=== PATIENT | male | born 1970 | race Caucasian/White ===

== ENCOUNTER 2023-01-20 11:22 | Emergency (ER) | payer BC, SELFPAY ==
[2023-01-20] VITALS (71 sets, daily range): BP systolic 101–174; BP diastolic 70–115; PULSE 47–81; RESP 20–22; TEMP 36.4–37.1; O2SAT 94–99; BMI 31.0
--- NOTE | 2023-01-20 11:50 | CRLHL7_ITS ---
For Patients: As a result of the Cures Act, medical imaging exams and procedure reports are released immediately into your electronic medical record. You may view this report before your referring provider. If you have questions, please contact your health care provider. INDICATION: Chest pain. Shortness of breath. TECHNIQUE: Chest 2 views. COMPARISON: None. FINDINGS: Cardiovascular and mediastinum: Heart size and vasculature are normal in caliber and appearance. Lungs and pleural spaces: Lungs are clear. No sign of infiltrate or mass. No sign of pleural effusion. No pneumothorax. Bones and soft tissues: No significant findings. IMPRESSION: No acute or significant findings. Dictated by Dimitri Kiran MD @ 01/20/2023 12:51:34 PM (Electronically Signed)
--- NOTE | 2023-01-20 11:51 | ED.GENADULT ---
HPI - General Adult General Time Seen by Provider: 11:51 Date Seen: 01/20/23 Chief complaint: Chest Pain Stated complaint: chest pains Time Seen by Provider: 01/20/23 11:32 History of Present Illness HPI narrative: This is a 52-year-old male who is generally healthy save for history of viral mental allergies, presenting to the ER today with chest pain. He has been healthy and normal lately. No recent episodes of chest pain or shortness of breath. He was traveling this weekend to stay with a [address] a family . Other than being out of his usual routine, no other unusual behavior this weekend. He did have a couple of alcoholic beverages 2 nights ago, on Friday. He got back home yesterday went for an hour and a half walk that felt fine. This morning he was getting back into his routine and doing a workout, as he normally does. While working out he began to experiencing a substernal chest pressure. He was quite intense in bothersome. He had to stop working out. He made him a little bit sweaty. It did radiate with some numbness down his left arm. No pain to the back, up to the jaw, or down to his abdomen. No palpitations. No syncope. Perhaps mild shortness of breath. The pain was not pleuritic. No abdominal pain. No history of similar pains. No swelling in his legs. No history of DVT/PE. He does note that the summer has been as bad summer for his environmental allergies so he has been taking Zyrtec, which he does not normally take. He took an Ambien last night to make sure that he got a good night's sleep, and slept well. No drugs. No tobacco. Related Data Home Medications Medication Instructions Recorded Confirmed cetirizine 10 mg capsule (All Day 10 mg PO DAILY PRN 01/20/23 01/20/23 Allergy (cetirizine)) zolpidem 5 mg tablet (Ambien) 5 mg PO QHS 01/20/23 01/20/23 Previous Rx's Medication Instructions Recorded doxepin 25 mg capsule 25 - 50 mg (1 - 2 x 25 mg) PO QHS 04/22/22 PRN sleep difficulties #60 caps Allergies Allergy/AdvReac Type Severity Reaction Status Date / Time No Known Drug Allergies Allergy Verified 01/20/23 11:33 [facility] Medical History (Updated 01/20/23 @ 16:22 by Star Pepper MD) Chronic sinusitis ?J32.9 - Chronic sinusitis, unspecified (ICD-10) Surgical History (Updated 04/16/22 @ 12:46 by Marguerite Escobedo) Status post wrist surgery ?Z98.890 - Other specified postprocedural states (ICD-10) Hx of removal of cyst ?Z98.890 - Other specified postprocedural states (ICD-10) Hx of nasal septoplasty ?Z98.890 - Other specified postprocedural states (ICD-10) Family History (Updated 04/16/22 @ 12:48 by Marguerite Escobedo) Father High blood pressure Diabetes Stroke Paternal Grandmother Diabetes Maternal Grandmother Diabetes Social History (Updated 04/16/22 @ 12:49 by Marguerite Escobedo) Narrative: Does not use Illicit drugs Non Smoker Approximately 6 drinks of Alcohol a week 2 Children Smoking Status: Never smoker Do you use any of these nicotine containing products: None How often do you have a drink containing alcohol: 2-3 times a week How many standard drinks containing alcohol do you have on a typical day: 1 or 2 How often do you have six or more drinks on one occasion: Never AUDIT-C Alcohol total score: 3 Non-prescribed substance use: denies use service: No Exam Narrative: Exam Narrative: Constitutional: Appears well-developed and well-nourished. Alert. Conversant. Non toxic. HENT: Head: Atraumatic. Nose: Nose normal. Mouth/Throat: Oral mucosa is clear and moist. no trismus. Pharynx normal. Tonsils symmetric. No tonsillar enlargement, erythema, or exudate. Eyes: Conjunctivae normal. EOM normal. Pupils equal, round, and reactive to light. No scleral icterus. Neck: Normal range of motion. Neck supple. No tracheal deviation present. No JVD Cardiovascular: Normal rate, regular rhythm. No gallop. No friction rub. No murmur heard. Symmetric radial and posterior tibial artery pulses Pulmonary/Chest: Effort normal. No stridor. No respiratory distress. No wheezes. No rales. No rhonchi . No tenderness. Abdominal: Soft. Bowel sounds normal. No distension. No mass. No tenderness. No rebound. No guarding. Musculoskeletal: RUE: Normal range of motion. No tenderness. No deformity LUE: Normal range of motion. No tenderness. No deformity RLE: Normal range of motion. No edema. No tenderness. No deformity LLE: Normal range of motion. No edema. No tenderness. No deformity Lymph: No cervical adenopathy. Neurological: Alert and oriented to person, place, and time. Normal strength. CN II-VII intact. No sensory deficit. GCS eye subscore is 4. GCS verbal subscore is 5. GCS motor subscore is 6. Normal coordination Skin: Skin is warm and dry. No rash noted. No pallor. Normal capillary refill. Psychiatric: Normal mood. Normal affect. Mildly anxious and appears uncomfortable. Const: Vital Signs, click to edit/add: Vital Signs - 24 hr 01/20/23 11:27 01/20/23 11:47 01/20/23 12:00 Temperature 97.6 F Pulse Rate 61 72 Pulse Rate [Right Pulse Oximeter] 77 Respiratory Rate Blood Pressure 135/100 H Blood Pressure [Ri ght Upper Arm] 174/115 H Pulse Oximetry 95 96 94 Oxygen Delivery Me thod Room Air Room Air Room Air 01/20/23 12:01 01/20/23 12:02 01/20/23 12:12 Temperature Pulse Rate 76 Pulse Rate [Right Pulse Oximeter] Respiratory Rate Blood Pressure 135/96 H 125/94 H Blood Pressure [Ri ght Upper Arm] Pulse Oximetry 95 Oxygen Delivery Mn thod Room Air 01/20/23 12:16 01/20/23 12:22 01/20/23 12:27 Temperature Pulse Rate 81 Pulse Rate [Right Pulse Oximeter] Respiratory Rate Blood Pressure 134/94 H 138/101 H 145/101 H Blood Pressure [Ri ght Upper Arm] Pulse Oximetry 99 Oxygen Delivery Me thod Room Air 01/20/23 12:28 01/20/23 12:30 01/20/23 12:32 Temperature Pulse Rate 79 76 73 Pulse Rate [Right Pulse Oximeter] Respiratory Rate Blood Pressure 137/86 Blood Pressure [Ri ght Upper Arm] Pulse Oximetry 98 97 97 Oxygen Delivery Me thod Room Air Room Air Room Air 01/20/23 12:36 01/20/23 12:41 01/20/23 12:45 Temperature Pulse Rate 68 55 L 53 L Pulse Rate [Right Pulse Oximeter] Respiratory Rate Blood Pressure 133/95 H 129/89 126/98 H Blood Pressure [Ri ght Upper Arm] Pulse Oximetry 95 95 96 Oxygen Delivery Me thod Room Air Room Air Room Air 01/20/23 12:46 01/20/23 12:47 01/20/23 12:48 Temperature Pulse Rate 61 59 L 48 L Pulse Rate [Right Pulse Oximeter] Respiratory Rate Blood Pressure 128/83 Blood Pressure [Ri ght Upper Arm] Pulse Oximetry 94 95 96 Oxygen Delivery Me thod Room Air Room Air Room Air 01/20/23 12:52 01/20/23 12:52 01/20/23 12:57 Temperature Pulse Rate 52 L 50 L Pulse Rate [Right Pulse Oximeter] 50 L Respiratory Rate 22 Blood Pressure 116/75 110/71 Blood Pressure [Ri ght Upper Arm] 116/75 Pulse Oximetry 97 95 96 Oxygen Delivery Me thod Room Air Room Air Room Air 01/20/23 13:00 01/20/23 13:02 01/20/23 13:07 Temperature Pulse Rate 54 L 72 60 Pulse Rate [Right Pulse Oximeter] Respiratory Rate Blood Pressure 114/83 101/70 Blood Pressure [Ri ght Upper Arm] Pulse Oximetry 95 94 95 Oxygen Delivery Me thod Room Air Room Air Room Air 01/20/23 13:12 01/20/23 13:15 01/20/23 13:16 Temperature Pulse Rate 52 L 63 55 L Pulse Rate [Right Pulse Oximeter] Respiratory Rate Blood Pressure 116/88 123/85 Blood Pressure [Ri ght Upper Arm] Pulse Oximetry 97 95 94 Oxygen Delivery Me thod Room Air Room Air Room Air 01/20/23 13:21 01/20/23 13:27 01/20/23 13:28 Temperature Pulse Rate 47 L 51 L 59 L Pulse Rate [Right Pulse Oximeter] Respiratory Rate Blood Pressure 125/80 112/91 H Blood Pressure [Ri ght Upper Arm] Pulse Oximetry 97 95 97 Oxygen Delivery Me thod Room Air Room Air Room Air 01/20/23 13:30 01/20/23 13:32 01/20/23 13:41 Temperature Pulse Rate 53 L 53 L 69 Pulse Rate [Right Pulse Oximeter] Respiratory Rate Blood Pressure 116/77 125/85 Blood Pressure [Ri ght Upper Arm] Pulse Oximetry 96 95 94 Oxygen Delivery Me thod Room Air Room Air Room Air 01/20/23 13:45 01/20/23 14:00 01/20/23 14:02 Temperature Pulse Rate 80 60 59 L Pulse Rate [Right Pulse Oximeter] Respiratory Rate Blood Pressure 121/86 Blood Pressure [Ri ght Upper Arm] Pulse Oximetry 95 97 95 Oxygen Delivery Me od Room Air Room Air Room Air 01/20/23 14:15 01/20/23 14:22 01/20/23 14:30 Temperature Pulse Rate 57 L 81 Pulse Rate [Right Pulse Oximeter] Respiratory Rate Blood Pressure 126/88 Blood Pressure [Ri ght Upper Arm] Pulse Oximetry 96 95 Oxygen Delivery Me od Room Air Room Air 01/20/23 14:41 01/20/23 14:46 01/20/23 15:00 Temperature Pulse Rate 74 71 75 Pulse Rate [Right Pulse Oximeter] Respiratory Rate Blood Pressure 120/80 Blood Pressure [Ri ght Upper Arm] Pulse Oximetry 96 99 96 Oxygen Delivery Me od Room Air Room Air Room Air 01/20/23 15:02 01/20/23 15:15 01/20/23 15:22 Temperature Pulse Rate 71 63 79 Pulse Rate [Right Pulse Oximeter] Respiratory Rate Blood Pressure 129/93 H 142/97 H Blood Pressure [Ri ght Upper Arm] Pulse Oximetry 95 97 96 Oxygen Delivery Me od Room Air Room Air Room Air 01/20/23 15:30 01/20/23 15:41 01/20/23 15:45 Temperature Pulse Rate 77 79 77 Pulse Rate [Right Pulse Oximeter] Respiratory Rate Blood Pressure 138/92 H Blood Pressure [Ri ght Upper Arm] Pulse Oximetry 96 98 96 Oxygen Delivery Me od Room Air Room Air Room Air 01/20/23 16:01 01/20/23 16:02 01/20/23 16:15 Temperature Pulse Rate 67 64 77 Pulse Rate [Right Pulse Oximeter] Respiratory Rate Blood Pressure 139/92 H Blood Pressure [Ri ght Upper Arm] Pulse Oximetry 97 98 98 Oxygen Delivery Me od Room Air Room Air Room Air 01/20/23 16:22 01/20/23 16:30 01/20/23 16:42 Temperature Pulse Rate 77 65 76 Pulse Rate [Right Pulse Oximeter] Respiratory Rate Blood Pressure 162/102 H 151/100 H Blood Pressure [Ri ght Upper Arm] Pulse Oximetry 98 97 98 Oxygen Delivery Me thod Room Air Room Air Room Air 01/20/23 16:45 01/20/23 17:00 01/20/23 17:02 Temperature Pulse Rate 72 74 76 Pulse Rate [Right Pulse Oximeter] Respiratory Rate Blood Pressure 159/105 H Blood Pressure [Ri ght Upper Arm] Pulse Oximetry 97 95 97 Oxygen Delivery Me thod Room Air Room Air Room Air 01/20/23 17:04 01/20/23 17:15 01/20/23 17:21 Temperature Pulse Rate 68 75 70 Pulse Rate [Right Pulse Oximeter] Respiratory Rate Blood Pressure 149/104 H Blood Pressure [Ri ght Upper Arm] Pulse Oximetry 94 97 96 Oxygen Delivery Me thod Room Air Room Air Room Air 01/20/23 17:30 01/20/23 17:42 01/20/23 17:45 Temperature Pulse Rate 61 66 64 Pulse Rate [Right Pulse Oximeter] Respiratory Rate Blood Pressure 145/100 H Blood Pressure [Ri ght Upper Arm] Pulse Oximetry 95 96 96 Oxygen Delivery Me thod Room Air Room Air Room Air 01/20/23 18:04 01/20/23 18:05 01/20/23 18:07 Temperature Pulse Rate 65 Pulse Rate [Right Pulse Oximeter] Respiratory Rate 20 Blood Pressure 139/99 H Blood Pressure [Ri ght Upper Arm] Pulse Oximetry 97 Oxygen Delivery Me thod Room Air Room Air 01/20/23 18:15 01/20/23 18:30 01/20/23 18:31 Temperature Pulse Rate 66 66 70 Pulse Rate [Right Pulse Oximeter] Respiratory Rate Blood Pressure 140/104 H Blood Pressure [Ri ght Upper Arm] Pulse Oximetry 95 97 95 Oxygen Delivery Me thod Room Air Room Air 01/20/23 18:45 01/20/23 18:53 01/20/23 18:56 Temperature 98.7 F Pulse Rate 64 Pulse Rate [Right Pulse Oximeter] 79 Respiratory Rate 20 Blood Pressure 132/98 H Blood Pressure [Ri ght Upper Arm] 132/98 H Pulse Oximetry 94 96 Oxygen Delivery Me thod Room Air Room Air Course Vital Signs Vital signs: Initial Vital Signs Temperature 97.6 F 01/20/23 11:27 Temperature Source Temporal Artery Scan 01/20/23 11:27 Pulse Rate 77 01/20/23 11:27 Pulse Rhythm Regular 01/20/23 11:27 Pulse Strength 3+ Normal 01/20/23 11:27 Blood Pressure 174/115 H 01/20/23 11:27 Blood Pressure Mean 134 H 01/20/23 11:27 Pulse Oximetry 95 01/20/23 11:27 Oxygen Delivery Method Room Air 01/20/23 11:27 Vital Signs Temperature 97.6 F 01/20/23 11:27 Pulse Rate 77 01/20/23 11:27 Blood Pressure 174/115 H 01/20/23 11:27 Pulse Oximetry 95 01/20/23 11:27 Oxygen Delivery Method Room Air 01/20/23 11:27 Temperature 98.7 F 01/20/23 18:56 Pulse Rate 79 01/20/23 18:56 Respiratory Rate 20 01/20/23 18:56 Blood Pressure 132/98 H 01/20/23 18:56 Pulse Oximetry 96 01/20/23 18:56 Oxygen Delivery Method Room Air 01/20/23 18:56 Medical Decision Making MDM Narrative Medical decision making narrative: This patient presents to the ER today for evaluation of chest pain. Differential was broad. No evidence of palpitations, syncope or other cardiac dysrhythmia. We considered possible ACS, however workup with initial EKG s and troponin is negative. Given time since onset of symptoms, we did repeat a 2nd troponin 2nd troponin is abnormal at 3.05. Patient remains chest pain-free after nitro given here in the ER. He has received aspirin. He is on heparin bolus and drip. Discussed with Cardiology, Dr. Hancock, from [facility] at [facility]. He agrees with indication for transfer. No need for emergent laborer bituminous paving activation in the absence of STEMI. EKG shows no evidence for pericarditis. Clinical presentation not suggestive of myocarditis. Chest x-ray shows no evidence for pneumonia, pneumothorax, pulmonary edema, pleural effusion, rib fracture, cardiomegaly. Mediastinum is normal on the x-ray. The patient has no ripping or tearing pain through to the back and has symmetric pulses on exam, no other acute neuro findings so I doubt aortic dissection. Risk of radiation and contrast exposure would outweigh the benefit of CT angiogram. We considered PE for this patient. He is overall low risk. No evidenc for DVT. D-dimer normal. No wheezing or bronchospasm to suggest COPD/asthma. No signs of chest wall cellulitis, shingles, injury. Discussed abnormal troponin with the patient and his family. They understand the indication for hospitalization/transfer. Unfortunately there are no open beds immediately available an [facility]. He is first on the wait list. We have also contacted other facilities. There were no beds available at [facility]. There was a cardiology of bed available at [facility]. Patient was accepted by the hospitalist, . Patient is well groomed transfer. He was transferred by EMS on heparin drip without any active chest pain and stable vital signs.. Lab Data Labs: Lab Results 01/20/23 01/20/23 Range/Units 11:47 14:55 WBC 6.98 (4.50-11.00) K/uL RBC 5.25 (4.30-5.90) m/uL Hgb 15.0 (13.5-17.5) gm/dL Hct 45.0 (37.0-53.0) % MCV 86 (80-100) fL MCH 29 (26-34) pg MCHC 33 (32-36) gm/dL RDW Coeff of Heydi 12.0 (11.5-15.5) % Plt Count 205 (140-440) K/uL Neut % (Auto) 69.2 (42.0-72.0) % Lymph % (Auto) 18.9 L (20-44) % [place] % (Auto) 6.2 (0.0-11.0) % Eos % (Auto) 4.7 (0.0-7.0) % Baso % (Auto) 0.7 (0.0-3.0) % Neut # (Auto) 4.83 (1.7-7.0) K/uL Lymph # (Auto) 1.30 (0.90-2.90) K/uL [place] # (Auto) 0.40 (0.00-0.90) K/UL Eos # (Auto) 0.33 (0.00-0.50) K/uL Baso # (Auto) 0.05 (0.00-0.30) K/uL Abs Immat Gran (auto) 0.02 (0.00-0.30) K/uL Imm/Tot Granulo (auto) 0.3 % INR 0.97 (0.91-1.10) APTT 31 (23-33) Seconds D-Dimer Quant (PE/DVT) < 0.27 (0.00-0.50) ug/ml Sodium 138 (135-149) mmol/L Potassium 4.1 (3.6-5.1) mmol/L Chloride 106 (96-114) mmol/L Carbon Dioxide 21 (20-32) mmol/L Anion Gap 11 (7-15) mEq/L BUN 18 (7-30) mg/dL Creatinine 0.9 (0.5-1.5) mg/dL Estimated Creat Clear 108.51 Estimated GFR 103 ml/min Glucose 123 H (60-115) mg/dL Calcium 9.4 (8.4-10.6) mg/dL Troponin I 0.04 3.05 H* (0.01-0.04) ng/mL Imaging Data Chest x-ray: Attestation: I have reviewed the pertinent imaging results. Radiologist's impression: FINDINGS: Cardiovascular and mediastinum: Heart size and vasculature are normal in caliber and appearance. Lungs and pleural spaces: Lungs are clear. No sign of infiltrate or mass. No sign of pleural effusion. No pneumothorax. Bones and soft tissues: No significant findings. IMPRESSION: No acute or significant findings. ECG Data Attestation: I personally reviewed and interpreted this ECG as follows: Interpretation: EKG 1. Normal sinus rhythm with sinus arrhythmia. Rate 72. CT 168. No delta waves. QRS axis normal axis. No pathologic Q-waves. ST segment/T wave: T-wave inversion lead 3. Nonspecific ST depression in lead 2. No ST elevation. QTc: 427\ EKG 2. Normal sinus rhythm with sinus arrhythmia. Rate 65 CT 182. No delta waves. QRS axis normal axis. No pathologic Q-waves. ST segment/T wave: ST elevation approximately 1 box in AVR only. No other ST elevation or depression. T-wave inversion lead 3. Nonspecific flattening in the inferior leads and laterally QTc: 418 EKG 3. Normal sinus rhythm with sinus arrhythmia. Occasional premature ventricular contractions. CT 176 QRS axis normal axis. No pathologic Q-waves. ST segment/T wave: ST-elevation AVR. No other acute ST elevation or ST depression. QTc: 421 Discharge Plan Discharge Clinical Impression: Non-ST elevation [place] (NSTEMI) Patient Disposition: [facility] Prescriptions: No Action zolpidem [Ambien] 5 mg tablet 5 mg PO QHS Rx Instructions: may repeat once if no response in 30-60 minutes All Day Allergy (cetirizine) 10 mg capsule 10 mg PO DAILY PRN doxepin 25 mg capsule 25 - 50 mg PO QHS PRN (Reason: sleep difficulties) Qty: 60 0RF Stand Alone Forms: MyHealth Info Instructions
[2023-01-20] MEDS: ASPIRIN 81 MG TAB.CHEW 162 MG PO (11:59)
[2023-01-20] MEDS: NITROGLYCERIN 0.4 MG TAB.SUBL SUBLINGUAL ×3 (12:05→12:45)
[2023-01-20 12:10] LABS: Basophils Absolute Auto 0.05 K/uL (0.00-0.30); Basophils Percent Auto 0.7 % (0.0-3.0); Eosinophils Absolute Auto 0.33 K/uL (0.00-0.50); Eosinophils Percent Auto 4.7 % (0.0-7.0); Immature Granulocytes Abs Auto 0.02 K/uL (0.00-0.30); Immature Granulocytes Pct Auto 0.3 %; Lymphocytes Percent Auto 18.9 % (20-44); Mean Corpuscular HGB Conc 33 gm/dL (32-36); Mean Corpuscular Hemoglobin 29 pg (26-34); Mean Corpuscular Volume 86 fL (80-100); Monocytes Percent Auto 6.2 % (0.0-11.0); Neutrophils Absolute Auto 4.83 K/uL (1.7-7.0); Neutrophils Percent Auto 69.2 % (42.0-72.0); Platelet Count* 205 K/uL (140-440); Red Blood Count 5.25 m/uL (4.30-5.90); White Blood Count* 6.98 K/uL (4.50-11.00)
--- NOTE | 2023-01-20 12:10 | ED.NURSE ---
Pt received sublingual nitro, blood pressure went down to 125/94.
[2023-01-20 12:12] LABS: Slide Review Reflex No
[2023-01-20 12:17] LABS: Chloride* 106 mmol/L (96-114); Potassium* 4.1 mmol/L (3.6-5.1); Sodium* 138 mmol/L (135-149)
[2023-01-20 12:20] LABS: Anion Gap 11 mEq/L (7-15); Carbon Dioxide* 21 mmol/L (20-32); Creatinine* 0.9 mg/dL (0.5-1.5); Est. Creatinine Clearance* 108.51; Estimated Glomerular Filt Rate 103 ml/min
[2023-01-20 12:21] LABS: Blood Urea Nitrogen* 18 mg/dL (7-30); Calcium* 9.4 mg/dL (8.4-10.6); Glucose* 123 mg/dL (60-115)
[2023-01-20 12:22] LABS: D Dimer Quantitative* < 0.27 ug/ml (0.00-0.50)
--- NOTE | 2023-01-20 12:27 | ED.NURSE ---
Pt called for more chest pain, another dose of nitro given. Rates pain at a 6 out of 10, says it just feels really tight.
--- NOTE | 2023-01-20 12:29 | ED.NURSE ---
After the 2nd dose of nitro was given, he reports his pain has decreased down to a 2/10.
[2023-01-20 12:33] LABS: Troponin I* 0.04 ng/mL (0.01-0.04)
--- NOTE | 2023-01-20 12:48 | ED.NURSE ---
after giving 3rd dose of nitro, pt reports the pressure in his chest is still at 3/10, his pain/pressure has not improved. Pt is feeling hot and sweaty.
--- NOTE | 2023-01-20 13:26 | ED.NURSE ---
pt reports the pressure in his chest has improved. Will continue to monitor.
--- NOTE | 2023-01-20 13:28 | ED.NURSE ---
pressure in chest has subsided
[2023-01-20 15:45] LABS: Troponin I* 3.05 ng/mL (0.01-0.04)
--- NOTE | 2023-01-20 15:50 | ED.NURSE ---
paged out cardiology for consult on pt
[2023-01-20] MEDS: HEPARIN 25,000 UNIT/500 ML BAG 20 UNIT IV (16:20)
[2023-01-20] MEDS: HEPARIN 5,000 UNIT/0.5 ML INJ 4000 UNIT IVP (16:21)
--- NOTE | 2023-01-20 16:31 | ED.NURSE ---
Pt reports no new chest pain, or discomfort as of 1619.
[2023-01-20 17:19] LABS: INR 0.97 (0.91-1.10); Partial Thromboplastin Time* 31 Seconds (23-33); Prothrombin Time 13.5 Seconds
--- NOTE | 2023-01-20 18:48 | ED.NURSE ---
patient report given off to hospital [facility].
--- NOTE | 2023-01-20 19:06 | ED.NURSE ---
Report given off to EMS, pt heading to [facility]. Pt is leaving with no pain, vitals are stable.
--- NOTE | 2023-01-20 19:26 | ED.NURSE ---
Pt transferred by [facility] to [facility].
== END 2023-01-20 19:10 | disposition short-term general hospital (02) ==
PROVIDERS: Emergency Provider Emergency Medicine; PCP Student in an Organized Health Care Education/Training Program
DX: I21.4 Non-ST elevation (NSTEMI) myocardial infarction (principal)
CPT/HCPCS: 36415; 71046; 80048; 84484; 85025; 85027; 85379; 85610; 85730; 93005; 99284; 99285; A9270; J1644

== ENCOUNTER 2023-01-20 19:04 | Outpatient (CLI) | payer BC, SELFPAY | END 2023-01-20 19:05 | disposition home or self-care (01) | LOC: AMB 02-08 23:42 | PROVIDERS: PCP Student in an Organized Health Care Education/Training Program; Visit Provider Emergency Medicine | DX: I21.4 Non-ST elevation (NSTEMI) myocardial infarction (principal) | CPT/HCPCS: A0425; A0434 ==

== ENCOUNTER 2023-02-20 09:12 | Emergency (ER) | payer BC, SELFPAY ==
[2023-02-20 09:25] VITALS: BP 125/98; PULSE 54; RESP 18; TEMP 36; O2SAT 97; BMI 30.5
--- NOTE | 2023-02-20 09:34 | ED_ITS ---
HPI - General Adult General Time Seen by Provider: 09:34 Date Seen: 02/20/23 Chief complaint: Skin/Abscess/Foreign Body Stated complaint: Bleeding cyst by keyla zuniga Time Seen by Provider: 02/20/23 09:34 Source: patient, RN notes reviewed and old records reviewed Mode of arrival: ambulatory Limitations: no limitations History of Present Illness HPI narrative: Robin is a very pleasant 52-year-old male with history of a perianal abscess with surgical intervention 18 months ago, NC 1 month ago who comes to the emergency room with complaints of perirectal pain. Patient notes that he has a significant amount of anxiety related to being here in the hospital. He states he has just been through so much recently. One month ago he presented and was transferred to [facility] after an NC. in regards to the pain he is presenting with today, this has been ongoing for the past few days. Patient states that he had was actually in [place] at a conference and noted pain and immediately flew back year. He notes that he has seen some pinkish drainage from that area. He has not had fever or chills. No vomiting. No trauma to the area. Eighteen months ago he was in [facility] [place] when this occurred any had to go through surgical drainage and state in the hospital at which time the dressing changes worse does painful that he states he would rather ?be beaten?. Related Data Home Medications Medication Instructions Recorded Confirmed cetirizine 10 mg capsule (All Day 10 mg PO DAILY PRN 01/20/23 02/19/23 Allergy (cetirizine)) zolpidem 5 mg tablet (Ambien) 5 mg PO QHS 01/20/23 02/19/23 aspirin 81 mg tablet,delayed 81 mg PO DAILY 02/19/23 02/20/23 release atorvastatin 80 mg tablet 80 mg PO DAILY 02/19/23 02/20/23 carvedilol 12.5 mg tablet 12.5 mg PO BID 02/19/23 02/20/23 lisinopril 5 mg tablet 5 mg PO DAILY 02/19/23 02/20/23 nitroglycerin 0.4 mg sublingual 0.4 mg sublingual PRN 02/19/23 02/19/23 tablet prasugrel 10 mg tablet 10 mg PO DAILY 02/20/23 02/20/23 Previous Rx's Medication Instructions Recorded doxepin 25 mg capsule 25 - 50 mg (1 - 2 x 25 mg) PO QHS 04/22/22 PRN sleep difficulties #60 caps amoxicillin 500 mg-potassium 1 tab PO TID 10 days #30 tabs 02/19/23 clavulanate 125 mg tablet (Augmentin) oxycodone 5 mg capsule 5 mg PO Q4H PRN pain #14 caps 02/20/23 Allergies Allergy/AdvReac Type Severity Reaction Status Date / Time No Known Drug Allergies Allergy Verified 02/20/23 09:23 Review of Systems Status of ROS: Reports: 10 or more systems reviewed and unremarkable except as noted in History and below Const: Denies: fever, chills or fatigue Cardio: Denies: chest pain, swelling of feet/ankles or shortness of breath with exertion Resp: Denies: shortness of breath GI: Denies: abdominal pain, nausea or vomiting Endo: Denies: fatigue PFSH PFSH Medical History Perirectal abscess ?K61.1 - Rectal abscess (ICD-10) Chronic sinusitis ?J32.9 - Chronic sinusitis, unspecified (ICD-10) Surgical History Status post wrist surgery ?Z98.890 - Other specified postprocedural states (ICD-10) Hx of removal of cyst ?Z98.890 - Other specified postprocedural states (ICD-10) Hx of nasal septoplasty ?Z98.890 - Other specified postprocedural states (ICD-10) Family History Father High blood pressure Diabetes Stroke Paternal Grandmother Diabetes Maternal Grandmother Diabetes Social History Narrative: Does not use Illicit drugs Non Smoker Approximately 6 drinks of Alcohol a week 2 Children Smoking Status: Never smoker Do you use any of these nicotine containing products: None How often do you have a drink containing alcohol: 2-3 times a week How many standard drinks containing alcohol do you have on a typical day: 1 or 2 How often do you have six or more drinks on one occasion: Never AUDIT-C Alcohol total score: 3 Non-prescribed substance use: denies use service: No Exam Narrative: Exam Narrative: Robin is alert and oriented. Very well-spoken man. Very anxious and tearful in the emergency room. Significant anxiety associated with his stay here. EOM is full. Oral cavity with moist mucous membranes. Dentition is intact. Posterior oropharynx is clearly seen. Heart with regular rate and rhythm and lungs are clear in all lung hall. Abdomen is soft nontender. Examination of the perianal area shows a fluctuant area of tenderness somewhat distal from the anal opening at approximately the the 11 o'clock position this june as patient is prone at this time. At the very bottom of this area which measures approximately 2 x 1 cm there is a small opening that shows a small amount of drainage. No surrounding erythema. Moving all extremities. Const: Vital Signs, click to edit/add: Vital Signs - 24 hr 02/20/23 09:25 Temperature 96.8 F L Pulse Rate [Pulse Oximeter] 54 L Respiratory Rate 18 Blood Pressure [Ri ght Upper Arm] 125/98 H Pulse Oximetry 97 Oxygen Delivery Me thod Room Air Documenting provider has reviewed patient's vital signs: yes Course Course ED Course: At this time patient appears to have a perirect abscess and not pilonidal cyst as initially reported. Of patient is extremely anxious about being here in the emergency room but we have been able to talk to him and let him know more plan which seems to help. At this time I do consult Dr. Gant, middleware consultant. Given patient's previous surgery and ongoing discomfort which she actually describes as through the past year there is concern regarding fistula or a deeper abscess. CT of the pelvis with contrast as well as labs including CBC, comprehensive, CRP are is ordered. Patient is also receptive to Toradol 15 mg IV which we have given. Reevaluation(s) Reevaluation #1: I did speak to patient about risks benefits of an I and D of the perirectal abscess that he is experiencing. Patient wishes to proceed with the procedure. I did talk to him about some enhanced medication to help with anxiety. Informed consent was obtained Consultations Consultation #1: Dr. Gant was in agreement to do an I&D on patient's abscess. I was able to provide IV sedation and pain control during this time. Discussion with patient he notes no adverse reactions to anesthesia or has any drug allergies. He is in agreement to try Ativan, fentanyl but I do think he would benefit from ketamine with his past experiences. Ativan 0.5 mg IV of pre treatment at this time to avoid any dysphoric reaction with the ketamine. Fentanyl 50 mcg was given and then 50 mg of ketamine given. Patient was placed on cardiac monitor technician head nasal cannula oxygen with suction standing by. Up patient did require additional 25 mcg of fentanyl near the end of the procedure. Otherwise he did have a very emotional reaction to the ketamine and experience significant crying and sobbing. Was able to speak to him and get him to relax and to breathe however. Patient tolerated procedure well with no change or worrisome findings such as hypotension tachycardia or hypoxia. Please see Dr. Gant note for procedure. Vital Signs Vital signs: Initial Vital Signs Temperature 96.8 F L 02/20/23 09:25 Temperature Source Temporal Artery Scan 02/20/23 09:25 Pulse Rate 54 L 02/20/23 09:25 Respiratory Rate 18 02/20/23 09:25 Blood Pressure 125/98 H 02/20/23 09:25 Blood Pressure Mean 107 H 02/20/23 09:25 Blood Pressure Position Standing 02/20/23 09:25 Pulse Oximetry 97 02/20/23 09:25 Oxygen Delivery Method Room Air 02/20/23 09:25 Vital Signs Temperature 96.8 F L 02/20/23 09:25 Pulse Rate 54 L 02/20/23 09:25 Respiratory Rate 18 02/20/23 09:25 Blood Pressure 125/98 H 02/20/23 09:25 Pulse Oximetry 97 02/20/23 09:25 Oxygen Delivery Method Room Air 02/20/23 09:25 Temperature 96.8 F L 02/20/23 09:25 Pulse Rate 54 L 02/20/23 09:25 Respiratory Rate 18 02/20/23 09:25 Blood Pressure 125/98 H 02/20/23 09:25 Pulse Oximetry 97 02/20/23 09:25 Oxygen Delivery Method Room Air 02/20/23 09:25 Medical Decision Making MDM Narrative Medical decision making narrative: 1. Perirectal abscess-patient is status post I&D by our middleware consultant. Sedation was directed by myself and we use Ativan, fentanyl and small amount of ketamine. Patient notes that he does not remember the procedure. He has been thinking myself and the staff many times as he felt that it was the best experience that he could have here. This may be something to use in the future if he has to have procedures. Patient is discharged home. Would have him continue his Augmentin that is currently prescribed. He is directed to do Sitz baths and I told him at least twice a day and especially after a bowel movement. He will change dressing as needed. He can shower without difficulty. He will follow up with a colorectal surgeon that he already has a relationship with. For pain he may use oxycodone 5 mg p.o. q.4-6 hours p.r.n. pain I did give him 14 tablets. I did ask that he not take any sleep medications such as Ambien or any sedatives with this medication. He is also supposed to start on a stool softener such as Colace. Pelvis CT without evidence of fistula or deeper abscess. 2. Significant medical anxiety-did well with supportive discussions and medications here. 3. Disposition-home at this time. His children are going to come and pick him up. Return for fever, chills, worsening symptoms. Medical Records Medical records reviewed: Yes I reviewed the patient's medical records Lab Data Lab results reviewed: Yes I reviewed the patient's lab results Labs: Lab Results 02/20/23 Range/Units 10:15 WBC 7.44 (4.50-11.00) K/uL RBC 4.74 (4.30-5.90) m/uL Hgb 13.6 (13.5-17.5) gm/dL Hct 40.7 (37.0-53.0) % MCV 86 (80-100) fL MCH 29 (26-34) pg MCHC 33 (32-36) gm/dL RDW Coeff of Heydi 12.0 (11.5-15.5) % Plt Count 204 (140-440) K/uL Neut % (Auto) 69.6 (42.0-72.0) % Lymph % (Auto) 19.4 L (20-44) % [place] % (Auto) 7.0 (0.0-11.0) % Eos % (Auto) 3.5 (0.0-7.0) % Baso % (Auto) 0.4 (0.0-3.0) % Neut # (Auto) 5.18 (1.7-7.0) K/uL Lymph # (Auto) 1.40 (0.90-2.90) K/uL [place] # (Auto) 0.50 (0.00-0.90) K/UL Eos # (Auto) 0.26 (0.00-0.50) K/uL Baso # (Auto) 0.03 (0.00-0.30) K/uL Abs Immat Gran (auto) 0.01 (0.00-0.30) K/uL Imm/Tot Granulo (auto) 0.1 % Sodium 140 (135-149) mmol/L Potassium 4.2 (3.6-5.1) mmol/L Chloride 104 (96-114) mmol/L Carbon Dioxide 28 (20-32) mmol/L Anion Gap 8 (7-15) mEq/L BUN 15 (7-30) mg/dL Creatinine 0.9 (0.5-1.5) mg/dL Estimated Creat Clear 105.38 Estimated GFR 103 ml/min Glucose 100 (60-115) mg/dL Calcium 10.1 (8.4-10.6) mg/dL Imaging Data CT scan - pelvis: Attestation: I have reviewed the pertinent imaging results. Radiologist's impression: There is a 1.9 x 1.5 x 2.0 cm air-containing well-circumscribed collection in the left inferior gluteal perirectal soft tissues. There is adjacent skin thickening and adjacent subcutaneous inflammatory stranding in the fat. The inflammation appears to be limited to the soft tissues without intrapelvic extension. No discrete fistula seen towards the anus. No inflammatory change in the bowel. Few diverticuli without diverticulosis. The appendix is normal. No pelvic free fluid. Normal CT appearance of the prostate. Normal pelvic vasculature with few atherosclerotic calcifications. Osseous structures are normal. Specifically, no sacroiliitis or bridging osteophytes in the spine. Impression: Small superficial left gluteal/perirectal abscess. No fistula seen. No intrapelvic extension. Discharge Plan Discharge Clinical Impression: Abscess, perianal Patient Disposition: Home, Self-Care Condition: Improved Additional Instructions: Follow-up with colorectal surgeon next week. Suggest Sitz baths at least twice a day or you may sit in a warm tub. Sharmila ecially after bowel movement. Continue your antibiotic. Oxycodone may be used for pain not relieved by Tylenol. Note that this will be constipating and I would want you on a stool softener such as Colace. Do not use Ambien or other sleep medications while using oxycodone. Do not drive or operate heavy machinery if using oxycodone. Return to the emergency room for fever chills worsening symptoms and as needed. Prescriptions: New oxycodone 5 mg capsule 5 mg PO Q4H PRN (Reason: pain) Qty: 14 0RF No Action aspirin 81 mg tablet,delayed release (DR/EC) 81 mg PO DAILY atorvastatin 80 mg tablet 80 mg PO DAILY carvedilol 12.5 mg tablet 12.5 mg PO BID lisinopril 5 mg tablet 5 mg PO DAILY nitroglycerin 0.4 mg tablet, sublingual 0.4 mg sublingual PRN amoxicillin-pot clavulanate [Augmentin] 500-125 mg tablet 1 tab PO TID 10 Days Qty: 30 0RF zolpidem [Ambien] 5 mg tablet 5 mg PO QHS Rx Instructions: may repeat once if no response in 30-60 minutes All Day Allergy (cetirizine) 10 mg capsule 10 mg PO DAILY PRN prasugrel 10 mg tablet 10 mg PO DAILY doxepin 25 mg capsule 25 - 50 mg PO QHS PRN (Reason: sleep difficulties) Qty: 60 0RF Follow Up/Referrals: Denzel Carey MD [Primary Care Provider] - Stand Alone Forms: [employer] Info Instructions
--- NOTE | 2023-02-20 09:51 | CRLHL7_ITS ---
For Patients: As a result of the Century Cures Act, medical imaging exams and procedure reports are released immediately into your electronic medical record. You may view this report before your referring provider. If you have questions, please contact your health care provider. Indication: Perirectal swelling, infection, possible cyst Technique: CT of the pelvis after the administration of intravenous contrast. The patient received 87 mL of Isovue 370 intravenously. Multiplanar reformats are included Comparison: CT abdomen 11/03/2018 Findings: There is a 1.9 x 1.5 x 2.0 cm air-containing well-circumscribed collection in the left inferior gluteal perirectal soft tissues. There is adjacent skin thickening and adjacent subcutaneous inflammatory stranding in the fat. The inflammation appears to be limited to the soft tissues without intrapelvic extension. No discrete fistula seen towards the anus. No inflammatory change in the bowel. Few diverticuli without diverticulosis. The appendix is normal. No pelvic free fluid. Normal CT appearance of the prostate. Normal pelvic vasculature with few atherosclerotic calcifications. Osseous structures are normal. Specifically, no sacroiliitis or bridging osteophytes in the spine. Impression: Small superficial left gluteal/perirectal abscess. No fistula seen. No intrapelvic extension. Please note that all CT scans at this facility use dose modulation, iterative reconstruction, and/or weight-based dosing when appropriate to reduce radiation dose to as low as reasonably achievable. Dictated by Breann Gonzalez MD @ 02/20/2023 12:11:19 PM (Electronically Signed)
[2023-02-20] MEDS: KETOROLAC 15 MG/ML inj IVP (10:23)
[2023-02-20] MEDS: 0.9 % SODIUM CHLORIDE 500 ML 500 ML IV (10:23)
[2023-02-20 10:30] LABS: Basophils Absolute Auto 0.03 K/uL (0.00-0.30); Basophils Percent Auto 0.4 % (0.0-3.0); Eosinophils Absolute Auto 0.26 K/uL (0.00-0.50); Eosinophils Percent Auto 3.5 % (0.0-7.0); Hematocrit 40.7 % (37.0-53.0); Hemoglobin* 13.6 gm/dL (13.5-17.5); Immature Granulocytes Abs Auto 0.01 K/uL (0.00-0.30); Immature Granulocytes Pct Auto 0.1 %; Lymphocytes Percent Auto 19.4 % (20-44); Mean Corpuscular HGB Conc 33 gm/dL (32-36); Mean Corpuscular Hemoglobin 29 pg (26-34); Mean Corpuscular Volume 86 fL (80-100); Neutrophils Absolute Auto 5.18 K/uL (1.7-7.0); Neutrophils Percent Auto 69.6 % (42.0-72.0); Platelet Count* 204 K/uL (140-440); Red Blood Count 4.74 m/uL (4.30-5.90); White Blood Count* 7.44 K/uL (4.50-11.00)
[2023-02-20 10:44] LABS: Slide Review Reflex No
[2023-02-20 10:54] LABS: Chloride* 104 mmol/L (96-114); Potassium* 4.2 mmol/L (3.6-5.1); Sodium* 140 mmol/L (135-149)
[2023-02-20 10:57] LABS: Anion Gap 8 mEq/L (7-15); Blood Urea Nitrogen* 15 mg/dL (7-30); Carbon Dioxide* 28 mmol/L (20-32); Creatinine* 0.9 mg/dL (0.5-1.5); Est. Creatinine Clearance* 105.38; Estimated Glomerular Filt Rate 103 ml/min; Glucose* 100 mg/dL (60-115)
[2023-02-20 10:58] LABS: Calcium* 10.1 mg/dL (8.4-10.6)
[2023-02-20] MEDS: LORazepam 2 MG/ML inj 0.5 MG IVP (11:41)
[2023-02-20] MEDS: KETAMINE HCL 100 MG/ML inj IVP (11:41)
[2023-02-20] MEDS: fentaNYL 100 MCG/2 ML inj 50 MCG IVP (11:41)
--- NOTE | 2023-02-20 12:58 | PM.GSCN ---
History of Present Illness Consult details Date Seen: 02/20/23 Consult date: 02/20/23 Narrative: Patient is a 52-year-old male who presented to the emergency department with perianal pain and milky red drainage. He does have a history of a perianal abscess about 1 year ago, which was drained in [place]. At that time the patient reports that it was a very traumatic experience for him, requiring twice daily packing. Since that surgery he feels like things have not ever fully healed. He continues to have intermittent pain and drainage to the area. About 1 week ago the pain and swelling increased. He initially went to urgent care yesterday was prescribed an oral antibiotic. He decided to come into the emergency department today because he woke up and had some bloody drainage, which concerned him. He denies any fevers at home. He is otherwise having regular bowel movements. He is on an aspirin and anti-platelet medication secondary to a heart attack he had 1 month earlier. Patient does report significant anxiety surrounding medical procedures and is very tearful during examination. Review of Systems Status of ROS: Reports: 6 or more systems reviewed and unremarkable except as noted in History and below [facility] Medical History (Updated 02/20/23 @ 13:03 by Reta Gant MD) Perirectal abscess ?K61.1 - Rectal abscess (ICD-10) Chronic sinusitis ?J32.9 - Chronic sinusitis, unspecified (ICD-10) Surgical History (Updated 04/16/22 @ 12:46 by Marguerite Escobedo) Status post wrist surgery ?Z98.890 - Other specified postprocedural states (ICD-10) Hx of removal of cyst ?Z98.890 - Other specified postprocedural states (ICD-10) Hx of nasal septoplasty ?Z98.890 - Other specified postprocedural states (ICD-10) Family History (Updated 04/16/22 @ 12:48 by Marguerite Escobedo) Father High blood pressure Diabetes Stroke Paternal Grandmother Diabetes Maternal Grandmother Diabetes Social History (Updated 04/16/22 @ 12:49 by Marguerite Escobedo) Narrative: Does not use Illicit drugs Non Smoker Approximately 6 drinks of Alcohol a week 2 Children Smoking Status: Never smoker Do you use any of these nicotine containing products: None How often do you have a drink containing alcohol: 2-3 times a week How many standard drinks containing alcohol do you have on a typical day: 1 or 2 How often do you have six or more drinks on one occasion: Never AUDIT-C Alcohol total score: 3 Non-prescribed substance use: denies use service: No Meds Home Medications and Allergies Home Medications Medication Instructions Recorded Confirmed Type cetirizine 10 mg capsule (All Day 10 mg PO DAILY PRN 01/20/23 02/19/23 History Allergy (cetirizine)) zolpidem 5 mg tablet (Ambien) 5 mg PO QHS 01/20/23 02/19/23 History aspirin 81 mg tablet,delayed 81 mg PO DAILY 02/19/23 02/20/23 History release atorvastatin 80 mg tablet 80 mg PO DAILY 02/19/23 02/20/23 History carvedilol 12.5 mg tablet 12.5 mg PO BID 02/19/23 02/20/23 History lisinopril 5 mg tablet 5 mg PO DAILY 02/19/23 02/20/23 History nitroglycerin 0.4 mg sublingual 0.4 mg sublingual PRN 02/19/23 02/19/23 History tablet prasugrel 10 mg tablet 10 mg PO DAILY 02/20/23 02/20/23 History Allergies Allergy/AdvReac Type Severity Reaction Status Date / Time No Known Drug Allergies Allergy Verified 02/20/23 09:23 Exam Narrative: Exam Narrative: General: Alert and oriented, nontoxic in appearance. Very anxious. Respiratory: Equal breath rise bilaterally, maintained on room air CV: Regular rhythm rate, well perfused : Normal external male genitalia. Perianal exam performed with evidence of fullness posterior, left lateral. There is a 2 mm opening with some bloody drainage. No purulence noted. No significant erythema or induration. The area is firm and consistent with scar tissue from previous procedure. This is approximately 2 cm away from the anal verge. Const: Vital Signs, click to edit/add: Vital Signs - 24 hr 02/20/23 09:25 Temperature 96.8 F L Pulse Rate [Pulse Oximeter] 54 L Respiratory Rate 18 Blood Pressure [Ri ght Upper Arm] 125/98 H Pulse Oximetry 97 Oxygen Delivery Me thod Room Air Results Labs Labs: Abnormal lab results 02/20/23 Range/Units 10:15 Lymph % (Auto) 19.4 L (20-44) % Diabetes panel 02/20/23 Range/Units 10:15 Sodium 140 (135-149) mmol/L Potassium 4.2 (3.6-5.1) mmol/L Chloride 104 (96-114) mmol/L Carbon Dioxide 28 (20-32) mmol/L BUN 15 (7-30) mg/dL Creatinine 0.9 (0.5-1.5) mg/dL Glucose 100 (60-115) mg/dL Calcium 10.1 (8.4-10.6) mg/dL Calcium panel 02/20/23 Range/Units 10:15 Calcium 10.1 (8.4-10.6) mg/dL Pituitary panel 02/20/23 Range/Units 10:15 Sodium 140 (135-149) mmol/L Potassium 4.2 (3.6-5.1) mmol/L Chloride 104 (96-114) mmol/L Carbon Dioxide 28 (20-32) mmol/L BUN 15 (7-30) mg/dL Creatinine 0.9 (0.5-1.5) mg/dL Glucose 100 (60-115) mg/dL Calcium 10.1 (8.4-10.6) mg/dL Adrenal panel 02/20/23 Range/Units 10:15 Sodium 140 (135-149) mmol/L Potassium 4.2 (3.6-5.1) mmol/L Chloride 104 (96-114) mmol/L Carbon Dioxide 28 (20-32) mmol/L BUN 15 (7-30) mg/dL Creatinine 0.9 (0.5-1.5) mg/dL Glucose 100 (60-115) mg/dL Calcium 10.1 (8.4-10.6) mg/dL All other labs normal. Imaging CT scan - pelvis: report reviewed and image reviewed Assessment and Plan Assessment and plan (1) Perianal abscess: Status: Acute Plan Patient is a 52-year-old male who presents with a recurrent perianal abscess. Given the patient's clinical history I am suspicious for a possible perianal fistula as a cause for his recurrent infections. Today, the abscess does appear to be spontaneously draining. I discussed with the patient my recommendation to increase the incision size for continued drainage and to allow the area to heal from the inside out. He was agreeable to this, with conscious sedation provided by the emergency department doctor. The procedure was performed at bedside and tolerated well. No packing was placed within the cavity, 4 x 4 gauze was placed on the outside of the incision to catch any persistent drainage. Recommend patient use Tylenol, ibuprofen and narcotic pain medicine for pain control. Take a stool softener once daily to prevent constipation. Take Sitz baths t.i.d. to keep the area clean and for comfort. Would recommend further evaluation and workup by Colorectal surgery. General Surgery Procedures I/D Type: abscess Site: jana-rectal Side (if applicable): left Sedation/analgesia: other (please see other procedure note) Anesthetic used: lidocaine 1% Technique: incised with #11 blade (cruciate incision) Amount of fluid (mL): 5 Irrigation: Yes Packing used?: none
== END 2023-02-20 13:58 | disposition home or self-care (01) ==
PROVIDERS: Emergency Provider Family Medicine; PCP Student in an Organized Health Care Education/Training Program
DX: K61.0 Anal abscess (principal)
CPT/HCPCS: 36415; 72193; 80048; 85025; 96374; 96375; 99284; J1885; J2060; J3010; J3490; J7120; Q9967

== ENCOUNTER 2023-04-02 16:09 | Emergency (ER) | payer BC, SELFPAY ==
[2023-04-02 16:14] VITALS: BP 142/89; PULSE 52; RESP 18; TEMP 36.3; O2SAT 97; BMI 31.1
[2023-04-02 16:27] VITALS: O2SAT 95
--- NOTE | 2023-04-02 16:27 | CRLHL7_ITS ---
For Patients: As a result of the Cures Act, medical imaging exams and procedure reports are released immediately into your electronic medical record. You may view this report before your referring provider. If you have questions, please contact your health care provider. INDICATION: Shortness of breath TECHNIQUE: Chest radiograph 2 views COMPARISON: 01/20/2023 FINDINGS: Mediastinum: The mediastinum is normal in appearance. The heart silhouette is normal in size and morphology. Lung: Both lungs are unremarkable in appearance. No sign of pleural effusion seen. No pneumothorax is identified. Bone and Soft tissue: Unremarkable for age. IMPRESSION: 1. No acute cardiopulmonary disease is seen. Dictated by: Canelo Martinez MD @ 04/02/2023 18:26:46 (Electronically Signed)
--- NOTE | 2023-04-02 16:37 | ED_ITS ---
HPI - General Adult General Chief complaint: Chest Pain Stated complaint: L chest pain-heart attack in Dec- Time Seen by Provider: 04/02/23 16:19 Source: patient Mode of arrival: ambulatory Limitations: no limitations History of Present Illness HPI narrative: 52-year-old male presenting today with chest pain that has been present for 1 month. Pain is substernal does not radiate. Nothing makes it worse. Going for walks makes it better. He notices that he does not notice that the pain is there if he is busy but if he is trying to relax that is when he notices it. No changes in his appetite. Does not change if he eats. Pain is present day and night. He describes it as a dull discomfort in the center of the chest. He denies any cough, fevers or chills. No recent illness. Patient did have a heart attack in December of this year. Patient did take a sublingual nitro earlier today which did not change his symptoms whatsoever. He has not tried other medications such as antacids. Related Data Home Medications Medication Instructions Recorded Confirmed cetirizine 10 mg capsule (All Day 10 mg PO DAILY PRN 01/20/23 04/02/23 Allergy (cetirizine)) zolpidem 5 mg tablet (Ambien) 5 mg PO QHS 01/20/23 02/19/23 aspirin 81 mg tablet,delayed 81 mg PO DAILY 02/19/23 04/02/23 release atorvastatin 80 mg tablet 80 mg PO DAILY 02/19/23 04/02/23 carvedilol 12.5 mg tablet 12.5 mg PO BID 02/19/23 04/02/23 lisinopril 5 mg tablet 5 mg PO DAILY 02/19/23 04/02/23 nitroglycerin 0.4 mg sublingual 0.4 mg sublingual PRN 02/19/23 02/19/23 tablet prasugrel 10 mg tablet 10 mg PO DAILY 02/20/23 02/20/23 Previous Rx's Medication Instructions Recorded doxepin 25 mg capsule 25 - 50 mg (1 - 2 x 25 mg) PO QHS 04/22/22 PRN sleep difficulties #60 caps oxycodone 5 mg capsule 5 mg PO Q4H PRN pain #14 caps 02/20/23 Allergies Allergy/AdvReac Type Severity Reaction Status Date / Time No Known Drug Allergies Allergy Verified 02/20/23 09:23 Review of Systems Status of ROS: Reports: 10 or more systems reviewed and unremarkable except as noted in History and below [facility] Medical History Perirectal abscess ?K61.1 - Rectal abscess (ICD-10) Chronic sinusitis ?J32.9 - Chronic sinusitis, unspecified (ICD-10) Surgical History Status post wrist surgery ?Z98.890 - Other specified postprocedural states (ICD-10) Hx of removal of cyst ?Z98.890 - Other specified postprocedural states (ICD-10) Hx of nasal septoplasty ?Z98.890 - Other specified postprocedural states (ICD-10) Family History Father High blood pressure Diabetes Stroke Paternal Grandmother Diabetes Maternal Grandmother Diabetes Social History Narrative: Does not use Illicit drugs Non Smoker Approximately 6 drinks of Alcohol a week 2 Children Smoking Status: Never smoker Do you use any of these nicotine containing products: None How often do you have a drink containing alcohol: 2-3 times a week How many standard drinks containing alcohol do you have on a typical day: 1 or 2 How often do you have six or more drinks on one occasion: Never AUDIT-C Alcohol total score: 3 Non-prescribed substance use: denies use service: No Exam Narrative: Exam Narrative: Well-nourished well-developed patient in no acute distress. Alert and oriented. Answers questions appropriately. Mood and affect are appropriate. Thoughts are goal oriented and rational. No tangential or magical thinking noted. Patient speaks in full sentences without needing to catch their breath. HEENT: Normocephalic atraumatic. Pupils are equally round reactive to light. Extraocular muscles are intact. Conjunctivae are moist without any icterus noted. Moist mucous membranes. Posterior pharynx is normal. Neck is soft without any lymphadenopathy or thyromegaly. No masses are appreciated. Cardiovascular: Heart is regular rate and rhythm S1 and S2 are present without any murmurs. Lungs: Clear to auscultation bilaterally no wheezes rhonchi or rales are appreciated. Patient takes deep breaths without any discomfort. I cannot reproduce his pain on palpation. Abdomen: Soft and nontender nondistended with normal bowel sounds. Extremities: Bilateral lower extremities are without edema. Skin: Well perfused without any obvious rashes. Const: Vital Signs, click to edit/add: Vital Signs - 24 hr 04/02/23 16:14 04/02/23 16:27 Temperature 97.4 F L Pulse Rate [Right Pulse Oximeter] 52 L Respiratory Rate 18 Blood Pressure [Ri ght Upper Arm] 142/89 H Pulse Oximetry 97 95 Oxygen Delivery Me thod Room Air Course Course ED Course: EKG, read by me, shows sinus bradycardia with a pulse of 51. Chest x-ray, read by me, does not show any acute pathology. Blood work was entirely unremarkable aside from a slightly elevated lipase which I do not think is related to his symptoms. Vital Signs Vital signs: Initial Vital Signs Temperature 97.4 F L 04/02/23 16:14 Temperature Source Temporal Artery Scan 04/02/23 16:14 Pulse Rate 52 L 04/02/23 16:14 Respiratory Rate 18 04/02/23 16:14 Blood Pressure 142/89 H 04/02/23 16:14 Blood Pressure Mean 106 H 04/02/23 16:14 Blood Pressure Position Sitting 04/02/23 16:14 Pulse Oximetry 97 04/02/23 16:14 Oxygen Delivery Method Room Air 04/02/23 16:14 Vital Signs Temperature 97.4 F L 04/02/23 16:14 Pulse Rate 52 L 04/02/23 16:14 Respiratory Rate 18 04/02/23 16:14 Blood Pressure 142/89 H 04/02/23 16:14 Pulse Oximetry 97 04/02/23 16:14 Oxygen Delivery Method Room Air 04/02/23 16:14 Temperature 97.4 F L 04/02/23 16:14 Pulse Rate 52 L 04/02/23 16:14 Respiratory Rate 18 04/02/23 16:14 Blood Pressure 142/89 H 04/02/23 16:14 Pulse Oximetry 95 04/02/23 16:27 Oxygen Delivery Method Room Air 04/02/23 16:14 Medical Decision Making MDM Narrative Medical decision making narrative: 52-year-old male with chest pain, unrelated physical activity, for approximately 1 month. At this time I do recommend he follow up with primary care physician or clinical esthetician for further management. There is no evidence of any life- threatening causes of his pain today including acute coronary syndrome, pneumothorax, pericarditis, PE. Symptoms are not consistent with aortic dissection. Medical Records Medical records reviewed: Yes I reviewed the patient's medical records Lab Data Lab results reviewed: Yes I reviewed the patient's lab results Labs: Lab Results 04/02/23 Range/Units 16:45 WBC 7.61 (4.50-11.00) K/uL RBC 4.92 (4.30-5.90) m/uL Hgb 14.0 (13.5-17.5) gm/dL Hct 42.6 (37.0-53.0) % MCV 87 (80-100) fL MCH 29 (26-34) pg MCHC 33 (32-36) gm/dL RDW Coeff of Heydi 12.3 (11.5-15.5) % Plt Count 209 (140-440) K/uL Neut % (Auto) 55.9 (42.0-72.0) % Lymph % (Auto) 29.2 (20-44) % [place] % (Auto) 6.7 (0.0-11.0) % Eos % (Auto) 7.1 H (0.0-7.0) % Baso % (Auto) 0.4 (0.0-3.0) % Neut # (Auto) 4.26 (1.7-7.0) K/uL Lymph # (Auto) 2.22 (0.90-2.90) K/uL [place] # (Auto) 0.50 (0.00-0.90) K/UL Eos # (Auto) 0.50 (0.00-0.50) K/uL Baso # (Auto) 0.03 (0.00-0.30) K/uL Abs Immat Gran (auto) 0.05 (0.00-0.30) K/uL Imm/Tot Granulo (auto) 0.7 % D-Dimer Quant (PE/DVT) 0.29 (0.00-0.50) ug/ml Sodium 137 (135-149) mmol/L Potassium 3.8 (3.6-5.1) mmol/L Chloride 101 (96-114) mmol/L Carbon Dioxide 23 (20-32) mmol/L Anion Gap 13 (7-15) mEq/L BUN 22 (7-30) mg/dL Creatinine 0.8 (0.5-1.5) mg/dL Estimated Creat Clear 118.56 Estimated GFR 106 ml/min Glucose 96 (60-115) mg/dL Calcium 9.1 (8.4-10.6) mg/dL Total Bilirubin 0.3 (0.1-1.5) mg/dL Direct Bilirubin 0.0 (0.0-0.5) mg/dL AST 36 H (12-35) U/L ALT 34 (4-50) U/L Alkaline Phosphatase 60 (40-150) U/L Troponin I < 0.01 L (0.01-0.04) ng/mL C-Reactive Protein < 0.5 L (0.5-1.0) mg/dL Total Protein 7.4 (6.0-8.3) g/dL Albumin 4.4 (3.3-5.0) g/dL Lipase 367 H (23-300) U/L SARS-CoV-2 (PCR) Negative SARS-CoV-2 (Negative) POC Troponin I 0.00 L (0.01-0.04) ng/ml Imaging Data Chest x-ray: Attestation: I have reviewed the pertinent imaging results. Radiologist's impression: TECHNIQUE: Chest radiograph 2 views COMPARISON: 01/20/2023 FINDINGS: Mediastinum: The mediastinum is normal in appearance. The heart silhouette is normal in size and morphology. Lung: Both lungs are unremarkable in appearance. No sign of pleural effusion seen. No pneumothorax is identified. Bone and Soft tissue: Unremarkable for age. IMPRESSION: 1. No acute cardiopulmonary disease is seen. ECG Data Attestation: I personally reviewed and interpreted this ECG as follows: Discharge Plan Discharge Clinical Impression: Atypical chest pain Patient Disposition: Home, Self-Care Condition: Stable Additional Instructions: Your workup today did not show any evidence of heart attack, blood clot in the lungs, lung pathology or infection. At this time, I do recommend you follow-up with your primary care provider or your clinical esthetician for further management. In the meantime you should start a daily omeprazole or Prilosec-you can buy this [id number]. This medicine work as an antacid medication which can often decreased symptoms of chest discomfort. Prescriptions: No Action aspirin 81 mg tablet,delayed release (DR/EC) 81 mg PO DAILY atorvastatin 80 mg tablet 80 mg PO DAILY carvedilol 12.5 mg tablet 12.5 mg PO BID lisinopril 5 mg tablet 5 mg PO DAILY nitroglycerin 0.4 mg tablet, sublingual 0.4 mg sublingual PRN zolpidem [Ambien] 5 mg tablet 5 mg PO QHS Rx Instructions: may repeat once if no response in 30-60 minutes All Day Allergy (cetirizine) 10 mg capsule 10 mg PO DAILY PRN prasugrel 10 mg tablet 10 mg PO DAILY oxycodone 5 mg capsule 5 mg PO Q4H PRN (Reason: pain) Qty: 14 0RF doxepin 25 mg capsule 25 - 50 mg PO QHS PRN (Reason: sleep difficulties) Qty: 60 0RF Follow Up/Referrals: Denzel Carey MD [Primary Care Provider] - Stand Alone Forms: [employer] Bag Info Instructions
[2023-04-02 17:03] LABS: Basophils Absolute Auto 0.03 K/uL (0.00-0.30); Basophils Percent Auto 0.4 % (0.0-3.0); Eosinophils Percent Auto 7.1 % (0.0-7.0); Hematocrit 42.6 % (37.0-53.0); Immature Granulocytes Abs Auto 0.05 K/uL (0.00-0.30); Immature Granulocytes Pct Auto 0.7 %; Lymphocytes Absolute Auto 2.22 K/uL (0.90-2.90); Lymphocytes Percent Auto 29.2 % (20-44); Mean Corpuscular HGB Conc 33 gm/dL (32-36); Mean Corpuscular Hemoglobin 29 pg (26-34); Mean Corpuscular Volume 87 fL (80-100); Monocytes Percent Auto 6.7 % (0.0-11.0); Neutrophils Absolute Auto 4.26 K/uL (1.7-7.0); Neutrophils Percent Auto 55.9 % (42.0-72.0); Platelet Count* 209 K/uL (140-440); RDW Coefficient of Variation % 12.3 % (11.5-15.5); Red Blood Count 4.92 m/uL (4.30-5.90); White Blood Count* 7.61 K/uL (4.50-11.00)
[2023-04-02 17:05] VITALS: BP 114/83; PULSE 49; RESP 16; O2SAT 97
[2023-04-02 17:25] LABS: Slide Review Reflex No
[2023-04-02 17:28] LABS: D Dimer Quantitative* 0.29 ug/ml (0.00-0.50)
[2023-04-02 17:34] LABS: Albumin* 4.4 g/dL (3.3-5.0); Chloride* 101 mmol/L (96-114)
[2023-04-02 17:35] LABS: Potassium* 3.8 mmol/L (3.6-5.1); Sodium* 137 mmol/L (135-149)
[2023-04-02 17:36] LABS: Creatinine* 0.8 mg/dL (0.5-1.5); Est. Creatinine Clearance* 118.56; Estimated Glomerular Filt Rate 106 ml/min
[2023-04-02 17:37] LABS: Alkaline Phosphatase* 60 U/L (40-150); Anion Gap 13 mEq/L (7-15); Aspartate Amino Transferase* 36 U/L (12-35); Bilirubin Total* 0.3 mg/dL (0.1-1.5); Blood Urea Nitrogen* 22 mg/dL (7-30); Carbon Dioxide* 23 mmol/L (20-32); Lipase* 367 U/L (23-300); Total Protein* 7.4 g/dL (6.0-8.3)
[2023-04-02 17:38] LABS: Alanine Aminotransferase* 34 U/L (4-50); Calcium* 9.1 mg/dL (8.4-10.6); Glucose* 96 mg/dL (60-115)
[2023-04-02 17:40] LABS: C Reactive Protein* < 0.5 mg/dL (0.5-1.0)
[2023-04-02 17:41] LABS: SARS PCR* Negative SARS-CoV-2 (Negative)
[2023-04-02 18:00] VITALS: BP 116/84; PULSE 47; RESP 16; O2SAT 96
[2023-04-02 18:00] LABS: Troponin I* < 0.01 ng/mL (0.01-0.04)
[2023-04-02 18:30] VITALS: BP 117/75; PULSE 48; RESP 16; O2SAT 97
[2023-04-02 18:55] LABS: Erythrocyte SedimentationRate* 2 mm/hr (2-15)
== END 2023-04-02 18:52 | disposition home or self-care (01) ==
PROVIDERS: Emergency Provider Family Medicine; PCP Student in an Organized Health Care Education/Training Program
DX: R07.89 Other chest pain (principal)
CPT/HCPCS: 36415; 71046; 80048; 80076; 83690; 84484; 85025; 85379; 85651; 86140; 87635; 93005; 94761; 99284; 99285